=== PATIENT | male | born 1980 | race Caucasian/White ===

== ENCOUNTER 2021-05-14 18:11 | Observation (INO) | payer BC ==
[~2021-05-14] VITALS: Ht 193 cm; Wt 68.0 kg
[~2021-05-14 18:11] MED LIST: DEBROX6.5 % AS
--- NOTE | 2021-05-14 18:45 | NUR ---
PT ESCORTED TO ROOM 14 FOR EVALUATION OF ABD PAIN
[2021-05-14 19:26] LABS: IMMATURE GRANULOCYTES 0.2 % (0.0-5.0); MEAN CORPUSCULAR HGB 29.1 pG CALC (26.0-32.0); MEAN CORPUSCULAR HGB CONC 32.8 g/dL CAL (32.0-36.0); NEUT# 17.82 thou/uL (1.82-7.42); RED BLOOD COUNT 5.29 mill/uL (4.70-6.10); RED CELL DISTRI WIDTH 14.6 % (11.5-15.5)
[2021-05-14 19:28] LABS: HEMATOCRIT 46.9 % (39.0-50.0); HEMOGLOBIN 15.4 g/dl (14.0-18.0); MEAN CELL VOLUME 88.7 fL CALC (80.0-100.0)
[2021-05-14 19:35] LABS: ALBUMIN 4.5 g/dL (3.2-5.0); ALKALINE PHOSPHATASE 75 u/l (38-126); AMYLASE 81 u/l (30-110); ANION GAP 13 (6-22 (CALC)); BILIRUBIN, TOTAL 0.5 mg/dL (0.0-1.4); BUN 16 mg/dL (9-20); BUN/CREATININE RATIO 21 (12-20 (CALC)); CARBON DIOXIDE 28 mmol/l (22-30); CHLORIDE 100 mmol/l (95-108); CREATININE 0.7 mg/dL (0.7-1.3); GFR > 60 ML/MIN (>=60 (CALC)); GFR FOR AFR.AMER. > 60 ML/MIN (>=60 (CALC)); LIPASE 421 u/l (23-300); POTASSIUM 4.1 mmol/l (3.5-5.1); SGOT/AST 23 u/l (17-59); SODIUM 138 mmol/l (137-146); TOTAL PROTEIN 8.1 g/dL (6.3-8.2)
--- NOTE | 2021-05-14 20:01 | NUR ---
Reassessment of patient completed. No distress noted.
[2021-05-14 20:42] LABS: URINE BILIRUBIN - DIPSTICK NEGATIVE (NEGATIVE); URINE BLOOD DIPSTICK NEGATIVE (NEGATIVE); URINE COLOR YELLOW; URINE GLUCOSE - DIPSTICK NEGATIVE (NEGATIVE); URINE KETONE NEGATIVE (NEGATIVE); URINE LEUK ESTERASE NEGATIVE (NEGATIVE); URINE PROTEIN - DIPSTICK TRACE mg/dL (NEG-TRACE); URINE UROBILINOGEN - DIPSTICK 0.2 E.U./dL (0.2)
[2021-05-14 20:45] LABS: URINE NITRITE - DIPSTICK NEGATIVE (Negative)
--- NOTE | 2021-05-14 21:13 | NUR ---
Reassessment of patient completed. No distress noted.
--- NOTE | 2021-05-14 21:31 | NUR ---
PATIENT TO CT AT THIS TIME
--- NOTE | 2021-05-14 21:48 | NUR ---
RETURNED FROM CT
--- NOTE | 2021-05-14 22:29 | NUR ---
PATIENT TO CT
--- NOTE | 2021-05-14 22:34 | NUR ---
Reassessment of patient completed. No distress noted.
--- NOTE | 2021-05-14 23:48 | NUR ---
PATIENT ADMIT TO ROOM 272 REPORT GIVEN TO HARSHAD, TRANSFERED PT TO ROOM VIA WC WITHOUT INCIDENCE
[2021-05-15] VITALS (9 sets, daily range): BP systolic 120–136; BP diastolic 74–92
--- NOTE | 2021-05-15 00:30 | NUR ---
PATIENT ADMITTED TO 272 VIA WHEELCHAIR WITH ER STAFF IN ATTENDANCE. PATIENT IS ABLE TO TRANSFER TO THE BED. AWAKE ALERT AND ORIENTEDX3. PATIENT WITH SALINE LOCK TO RAC-IVF NS HUNG AND INFUSING AT 125CC/HR. SITE IS HEALTHY WITH GOOD BLOOD RETURN. ZOSYN INFUSED ORDERED. PATIENT IS NPO FOR OR TODAY. PATIENT CAME TO THE ER TONIGHT FOR ABD PAIN THAT STARTED TUESDAY AND JUST GOT WORSE. STATES THAT HE HAD NORMAL BM ON TUESDAY. DENIES ANY DIFFICULTY WITH URINATATION. PATIENT WITH PRODUCTIVE COUGH-WHITE SECREATIONS PER PATIENT. STATES THAT HE IS A SMOKER. ABD IS FLAT WITH BS+. NO PERIPHERAL EDEMA NOTED. PULSES PALPABLE. ORIENTED TO ROOM AND SURROUNDINGS. INSTRUCTED ON USE OF NURSE CALL LIGHT SYSTEM AND TV REMOTE. SAFETY PRECAUTIONS REINFORCED. CALL LIGHT IN REACH. WILL CONT TO MONITOR.
--- NOTE | 2021-05-15 01:48 | NUR ---
PATIENT RESTING IN BED-CALLED C/O ABD PAIN AND NAUSEA. MEDICATED FOR NAUSEA WITH ZOFRAN 4MG IVP AND FOR PAIN WITH MORPHINE 4MG IVP. IVF NS PATENT AND INFUSING VIA RAC SITE AT 125CC/HR. PATIENT NPO AT THIS TIME FOR OR THIS MORNING. SAFETY PRECAUTIONS REINFORCED. CALL LIGHT IN REACH. WILL CONT TO MONITOR.
--- NOTE | 2021-05-15 03:19 | NUR ---
RESTING QUIETLY IN BED AT THIS TIME WITH EYES CLOSED. RESPS ARE EVEN AND UNLABORED. IVF NS PATENT AND INFUSING VIA RAC SITE AT 125CC/HR. SITE REMAINS HEALTHY. REMAINS NPO FOR OR TODAY. CALL LIGHT IN REACH. WILL CONT TO MONITOR.
--- NOTE | 2021-05-15 07:31 | NUR ---
PT note Patient is screened for rehab intervention and no needs are identified at this time
[2021-05-15] MEDS ORDERED: PERCOCET 5/321 COMBO PO (09:05)
== END 2021-05-15 12:35 | disposition home or self-care (01) | DRG 340 ==
LOC: ED 18:11 → ED-I 22:05 → ED 22:21 → MS2 22:23
PROVIDERS: Family Medicine; ADMIT Surgery; ATTEND Surgery
PROC: 0DTJ4ZZ Resection of Appendix, Percutaneous Endoscopic Approach (ICD-10-PCS; principal; 2021-05-15)
PROC: 3E02340 Introduction of Influenza Vaccine into Muscle, Percutaneous Approach (ICD-10-PCS; 2021-05-15)
DX: K35.32 Acute appendicitis with perforation, localized peritonitis, and gangrene, without abscess (principal); F17.210 Nicotine dependence, cigarettes, uncomplicated; Z23 Encounter for immunization
CPT/HCPCS: G0378; J0131; Q9967